=== PATIENT | male | born 1975 | race Caucasian/White ===

== ENCOUNTER 2019-05-17 22:02 | Inpatient (IN) | payer MEDICAID ==
[~2019-05-17] VITALS: Ht 177.8 cm; Wt 68.0 kg
[2019-05-18] MEDS ORDERED: ONDANSETRON HCL 4MG/2ML INJ IV STA (00:24)
[2019-05-18] MEDS ORDERED: SODIUM CHLORIDE 0.9% 500 ML IV ONE (00:24)
[2019-05-18] MEDS ORDERED: MORPHINE SULFATE 4 MG/ML CPJ (NOT FOR IM USE) IV STA (00:24)
[2019-05-18 01:01] LABS: CLARITY URINE CLEAR (CLEAR); COLOR URINE YELLOW (YELLOW); KETONES URINE NEGATIVE (NEGATIVE); LEUKOCYTE ESTERASE URINE NEGATIVE (NEGATIVE); NITRITE URINE NEGATIVE (NEGATIVE); OCCULT BLOOD URINE NEGATIVE (NEGATIVE); PROTEIN URINE TRACE (NEGATIVE); SPECIFIC GRAVITY URINE 1.021 (1.005-1.030); UROBILINOGEN URINE 0.2 E.U./dL (0.2-1.0)
[2019-05-18 01:05] LABS: CHLORIDE 119 mEq/L (98-107)
[2019-05-18 01:09] LABS: ETHANOL BLOOD < 10 mg/dL
[2019-05-18 01:20] LABS: *AMPHETAMINES SCREEN URINE NEGATIVE (NEGATIVE); *BARBITURATES SCREEN URINE NEGATIVE (NEGATIVE); *BENZODIAZEPINES SCREEN URINE NEGATIVE (NEGATIVE); *COCAINE SCREEN URINE NEGATIVE (NEGATIVE)
[2019-05-18 01:21] LABS: CANNABINOID URINE SCREEN NEGATIVE (NEGATIVE); METHADONE URINE SCREEN NEGATIVE (NEGATIVE); OPIATES URINE SCREEN NEGATIVE (NEGATIVE); PHENCYCLIDINE URINE SCREEN NEGATIVE (NEGATIVE)
[2019-05-18] MEDS ORDERED: LEVOFLOXACIN 750MG PREMIX 150 ML IV ONE (01:30)
[2019-05-18 02:03] LABS: HEMATOCRIT. 27.9 % (42.0-52.0); HEMOGLOBIN. 9.4 g/dL (14.0-18.0); MEAN CORPUSCULAR HEMOGLOBIN 30.9 pg (28.0-32.0); MEAN CORPUSCULAR VOLUME 91.5 fL (80.0-94.0); MEAN PLATELET VOLUME 7.1 fl (7.4-10.4); PLATELET 156 x1000/uL (130-400); RED BLOOD CELL COUNT 3.05 mill/uL (4.7-6.1); RED CELL DISTRIBUTION WIDTH 14.6 % (11.6-14.6)
[2019-05-18 03:18] LABS: PLATELET ESTIMATE NORMAL
[2019-05-18] MEDS ORDERED: IOHEXOL-300 100 ML BOTTLE ONE (03:56)
[2019-05-18] MEDS ORDERED: IOHEXOL-350 100 ML BOTTLE ONE (06:34)
[2019-05-18 08:00] VITALS: BP 103/65
[2019-05-18 08:25] VITALS: BP 103/65
[2019-05-18] MEDS ORDERED: HYDROCODONE/ACETAMINOPHEN 10/325MG TABLET PO PRN (10:00)
[2019-05-18] MEDS ORDERED: MAGNESIUM/ALUMINUM HYDROXIDE/SIMETHICONE 30ML UDC PO PRN (10:00)
[2019-05-18] MEDS ORDERED: ONDANSETRON HCL 4MG/2ML INJ IV PRN (10:00)
[2019-05-18] MEDS ORDERED: LORAZEPAM 2MG/ML CPJ IV PRN (10:00)
[2019-05-18] MEDS ORDERED: ACETAMINOPHEN 325MG TABLET PO PRN (10:00)
[2019-05-18] MEDS ORDERED: GUAIFENESIN 200MG/10ML SUGAR FREE UDC PO PRN (10:00)
[2019-05-18] MEDS ORDERED: DOCUSATE SODIUM 100MG CAPSULE PO PRN (10:00)
[2019-05-18] MEDS ORDERED: CLONIDINE 0.1MG TABLET PO PRN (10:00)
[2019-05-18] MEDS ORDERED: HYDRALAZINE 20MG/ML VIAL IV PRN (10:00)
[2019-05-18] MEDS ORDERED: IPRATROPIUM/ALBUTEROL 0.5-3(2.5)MG/3ML NEB HHN PRN (10:00)
[2019-05-18] MEDS ORDERED: MORPHINE SULFATE 2 MG/ML CPJ (NOT FOR IM USE) IV PRN (10:00)
[2019-05-18] MEDS ORDERED: DIPHENHYDRAMINE 50MG/ML VIAL IV PRN (10:00)
[2019-05-18] MEDS: ASPIRIN 81MG EC TABLET PO SCH (11:51)
[2019-05-18 12:28] VITALS: BP 97/65
[2019-05-18] MEDS: SODIUM CHLORIDE 0.9% INJ 3ML FLUSH IVF SCH ×2 (13:11→21:42)
[2019-05-18 13:40] LABS: CREATINE KINASE 109 IU/L (39-308)
[2019-05-18 13:54] LABS: T4 FREE 0.86 ng/dL (0.76-1.46)
[2019-05-18 17:01] VITALS: BP 101/65
[2019-05-18 20:00] VITALS: BP 117/74
[2019-05-19] VITALS: BP 104/79
[2019-05-19 04:00] VITALS: BP 96/57
[2019-05-19] MEDS: SODIUM CHLORIDE 0.9% INJ 3ML FLUSH IVF SCH ×2 (05:30→12:42)
[2019-05-19 06:18] LABS: HEMATOCRIT. 27.4 % (42.0-52.0); HEMOGLOBIN. 9.3 g/dL (14.0-18.0); MEAN CORPUSCULAR HEMOGLOBIN 30.7 pg (28.0-32.0); MEAN CORPUSCULAR VOLUME 90.3 fL (80.0-94.0); MEAN PLATELET VOLUME 7.5 fl (7.4-10.4); PLATELET 144 x1000/uL (130-400); RED BLOOD CELL COUNT 3.03 mill/uL (4.7-6.1); RED CELL DISTRIBUTION WIDTH 14.8 % (11.6-14.6)
[2019-05-19 06:36] LABS: CHLORIDE 115 mEq/L (98-107)
[2019-05-19 06:57] LABS: CREATINE KINASE 92 IU/L (39-308)
[2019-05-19 07:00] LABS: CREATINE KINASE MB FRACTION 1.7 ng/mL (0.5-3.6)
[2019-05-19 08:00] VITALS: BP 96/67
[2019-05-19] MEDS: ASPIRIN 81MG EC TABLET PO SCH (08:39)
[2019-05-19 12:17] VITALS: BP 94/56
[2019-05-19 15:17] LABS: PLATELET ESTIMATE NORMAL
[2019-05-19] MEDS ORDERED: POTASSIUM CHLORIDE 20MEQ TABLET SR PO NR (16:45)
[2019-05-19 17:23] VITALS: BP 96/74
[2019-05-19 20:00] VITALS: BP 103/76
[2019-05-20] VITALS: BP_SYST 101; BP_SYST 103; BP_DIAS 57; BP_DIAS 76
[2019-05-20 04:00] VITALS: BP 99/65
[2019-05-20] MEDS: SODIUM CHLORIDE 0.9% INJ 3ML FLUSH IVF SCH ×2 (06:39→21:51)
[2019-05-20 08:00] VITALS: BP 94/53
[2019-05-20] MEDS: ASPIRIN 81MG EC TABLET PO SCH (09:39)
[2019-05-20 12:00] VITALS: BP 100/70
[2019-05-20 16:00] VITALS: BP 100/54
[2019-05-20 20:00] VITALS: BP 106/71
[2019-05-21] VITALS: BP 103/75
[2019-05-21 08:00] VITALS: BP 107/75
[2019-05-21] MEDS: ASPIRIN 81MG EC TABLET PO SCH (09:03)
[2019-05-21 09:19] LABS: CHLORIDE 115 mEq/L (98-107)
[2019-05-21 10:34] LABS: HEMATOCRIT. 30.8 % (42.0-52.0); HEMOGLOBIN. 10.3 g/dL (14.0-18.0); MEAN CORPUSCULAR HEMOGLOBIN 30.6 pg (28.0-32.0); MEAN CORPUSCULAR VOLUME 91.2 fL (80.0-94.0); PLATELET 165 x1000/uL (130-400); RED BLOOD CELL COUNT 3.37 mill/uL (4.7-6.1); RED CELL DISTRIBUTION WIDTH 14.6 % (11.6-14.6)
[2019-05-21 12:00] VITALS: BP 98/70
[2019-05-21] MEDS: SODIUM CHLORIDE 0.9% INJ 3ML FLUSH IVF SCH (14:38)
[2019-05-21 16:00] VITALS: BP 101/72
[2019-05-21 16:42] VITALS: BP 101/72
[2019-05-21 17:14] LABS: PLATELET ESTIMATE NORMAL
[2019-05-21 19:09] LABS: OVA & PARASITE EXAM Final report (.)
== END 2019-05-21 17:07 | disposition home or self-care (01) | DRG 241 ==
LOC: ER 22:02 → 8WST 05-18 06:51 → EDBEDREQTM 05-18 06:55 → EDBEDREQSVC 05-18 06:55 → EDBEDREQ 05-18 06:55 → ENRESERV 05-18 07:12 → 5WST 05-20 22:47
PROVIDERS: ADMIT Internal Medicine; ATTEND Internal Medicine
DX: K29.70 Gastritis, unspecified, without bleeding (principal); B20 Human immunodeficiency virus [HIV] disease; E88.09 Other disorders of plasma-protein metabolism, not elsewhere classified; R19.7 Diarrhea, unspecified; D64.9 Anemia, unspecified; F31.30 Bipolar disorder, current episode depressed, mild or moderate severity, unspecified; R10.9 Unspecified abdominal pain; F15.10 Other stimulant abuse, uncomplicated; D72.819 Decreased white blood cell count, unspecified; K30 Functional dyspepsia; K59.00 Constipation, unspecified; F41.9 Anxiety disorder, unspecified; Z89.422 Acquired absence of other left toe(s); Z59.0 Homelessness; Z91.19 Patient's noncompliance with other medical treatment and regimen; Z68.21 Body mass index [BMI] 21.0-21.9, adult
CPT/HCPCS: 36415; 71045; 71275; 74174; 74177; 80048; 80053; 80061; 80305; 80320; 81003; 82270; 82550; 82553; 83036; 83605; 83880; 84439; 84443; 84484; 85025; 85379; 87015; 87045; 87177; 87209; 87328; 87427; 87449; 87493; 89055; 93005; 93306; 93970; 96361; 96365; 96375; 99285; J1956; J2270; J2405; J7030; J7040; Q9967; G0480